=== PATIENT | male | born 1965 | race Caucasian/White ===

== ENCOUNTER 2018-12-12 16:12 | Inpatient (IN) | payer OTHER ==
[~2018-12-12] VITALS: Ht 188 cm; Wt 80.0 kg
--- NOTE | 2018-12-12 16:34 | NUR ---
ASSUMED CARE OF PATIENT IN ROOM 41. DR. DOW AT BEDSIDE. PATIENT AMBULATORY AND STEADY ON FEET. PATIENT ON HOSPICE.
--- NOTE | 2018-12-12 16:45 | NUR ---
CALLED [facility] AND SPOKE WITH ENRIQUE. NOTIFIED HER THAT PATIENT IS REQUESTING A WORK-UP HERE IN THE ER WITH THE POSSIBILITY OF HOSPITAL ADMISSION. TOLD ENRIQUE THAT WE WOULD KEEP HER UPDATED. ENRIQUE REQUESTED THAT WE CALL THEM IF PATIENT IS INDEED ADMITTED TO THE HOSPITAL, AT [phone]. REQUESTED A CURRENT MEDICATION LIST FROM JOHAN, WHO STATES SHE WILL FAX HERE TO THE ED.
[2018-12-12 16:47] LABS: ALANINE AMINOTRANSFERASE 24 U/L (12-78); ALBUMIN 1.9 g/dL (3.4-5.0); ANION GAP 5 mmol/L (5-15); CALCIUM 7.8 mg/dL (8.5-10.1); CHLORIDE 110 mmol/L (98-107); CREATININE 0.72 mg/dL (0.7-1.3)
--- NOTE | 2018-12-12 16:49 | NUR ---
PT IN CT COULD NOT CONDUCT EKG AT THIS TIME
[2018-12-12 16:50] LABS: ALKALINE PHOSPHATASE 204 U/L (45-117); BILIRUBIN,TOTAL 0.3 mg/dL (0.2-1.0); MEAN CORPUSCULAR HEMOGLOBIN 20.8 pg (27.5-34.5); MEAN CORPUSCULAR HGB CONC 30.5 g/dL (33.2-36.2); MEAN CORPUSCULAR VOLUME 68.2 fL (81-97); MEAN PLATELET VOLUME 9.9 fL (7.4-10.4); PLATELET COUNT 277 x10^3/uL (130-400); TOTAL PROTEIN 6.2 g/dL (6.4-8.2)
[2018-12-12 16:51] LABS: MD YES
[2018-12-12] MEDS ORDERED: NYST15PO9 TP (17:04)
[2018-12-12 17:05] LABS: INTERNATIONAL NORMALIZED RATIO 1.06 (0.93-1.1); PROTHROMBIN TIME 11.1 Seconds (9.6-11.5)
[2018-12-12] MEDS ORDERED: GABA-826 PO (17:06)
[2018-12-12] MEDS ORDERED: MORP20SO PO (17:09)
[2018-12-12] MEDS ORDERED: MORP60TA34 PO (17:09)
[2018-12-12] MEDS ORDERED: LIDO1ADH TD (17:12)
[2018-12-12 17:17] LABS: EOS#(MANUAL) 0.08 x10^3/uL (0.0-0.4); EOS% (MANUAL) 1 % (1-7); LYMPH#(MANUAL) 0.91 x10^3/uL (1-3.4); LYMPHS% (MANUAL) 12 % (22-44); MONOS#(MANUAL) 0.38 x10^3/uL (0.3-2.7); MONOS% (MANUAL) 5 % (2-9); REACTIVE LYMPHS # (MANUAL) 0.08 x10^3/uL (0-0); REACTIVE LYMPHS % (MANUAL) 1 % (0-0); SEG#(MANUAL) 6.16 x10^3/uL (1.8-6.8); SEGS% (MANUAL) 81 % (42-75)
[2018-12-12 17:22] LABS: HYPOCHROMIA 2+; MICROCYTOSIS 2+; POLYCHROMASIA 1+
[2018-12-12 17:25] LABS: <PLATELET ESTIMATE> ADEQUATE; GIANT PLATELETS 1+; SCHISTOCYTES 1+; TARGET CELLS 1+
[2018-12-12] MEDS ORDERED: SENN-31 PO (17:51)
[2018-12-12] MEDS ORDERED: ONDA4TAB7 PO (17:52)
[2018-12-12] MEDS ORDERED: OMEP-110 PO (17:53)
[2018-12-12] MEDS ORDERED: CIPR500T87 PO (17:53)
[2018-12-12] MEDS ORDERED: POTA20TA89 PO (17:54)
[2018-12-12] MEDS ORDERED: FURO-93 PO (17:55)
[2018-12-12] MEDS ORDERED: GUAI600T80 PO (17:57)
[2018-12-12] MEDS ORDERED: LIDO76.5 TP (17:57)
[2018-12-12] MEDS ORDERED: METH5TAB PO (17:58)
[2018-12-12] MEDS ORDERED: ASPIRIN 325 MG TABLET PO ONE (18:30)
--- NOTE | 2018-12-12 19:03 | NUR ---
PIV STARTED FOR HOSPITAL ADMISSION. DR. HACKETT AT BEDSIDE.
--- NOTE | 2018-12-12 19:24 | NUR ---
REPORT TO GIANA SINGER. FLOOR READY FOR PT. TRANSPORT.
--- NOTE | 2018-12-12 19:27 | NUR ---
SPOKE WITH GIANA ESTEBAN FROM [facility]. SHE STATES SHE WILL BE IN TO SEE PTRenato WOLFF. PT. UPDATED ON THIS.
[2018-12-12] MEDS ORDERED: LABETALOL 5 MG/ML SYRINGE IVPush PRN (19:30)
[2018-12-12] MEDS ORDERED: morphine SULFATE 10 MG/ML, 1ML IVPush PRN (19:30)
[2018-12-12] MEDS ORDERED: ENALAPRILAT 1.25 MG/ML, 2ML IVPush PRN (19:30)
[2018-12-12] MEDS ORDERED: ONDANSETRON 2MG/ML, 2ML IVPush PRN (19:30)
[2018-12-12] MEDS ORDERED: ENOXAPARIN 40 MG/0.4 ML SQ SCH (19:30)
[2018-12-12] MEDS ORDERED: ASPIRIN 325 MG TABLET ONE (19:30)
[2018-12-12] MEDS ORDERED: PANTOPRAZOLE 20MG TABLET PO ONE (19:30)
[2018-12-12] MEDS ORDERED: NICOTINE 7 MG/24 HR PATCH.TD24 TD SCH (19:30)
[2018-12-12 19:50] VITALS: BP 159/91
[2018-12-12 20:00] LABS: THYROID STIMULATING HORMONE 6.49 mIU/L (0.358-3.740)
[2018-12-12] MEDS ORDERED: MORPHINE SULFATE 10 MG PO PRN (20:00)
[2018-12-12] MEDS ORDERED: POLYETHYLENE GLYCOL 17 GM PACKET PO PRN (20:00)
[2018-12-12] MEDS ORDERED: LIDOCAINE HCL TP PRN (20:00)
[2018-12-12] MEDS ORDERED: OMNIPAQUE 350 MG/ML, 100ML BOTTLE ONE (21:00)
[2018-12-12] MEDS ORDERED: POTASSIUM CHLORIDE 40 MEQ in SODIUM CHLORIDE 0.9% 500 ML IV ONE (21:00)
[2018-12-12] MEDS ORDERED: MAGNESIUM SULFATE PMX 2GM/50ML 50 ML IV ONE (21:00)
[2018-12-12] MEDS ORDERED: METHADONE 5 MG TABLET PO SCH (21:00)
[2018-12-12] MEDS: POTASSIUM CHLORIDE 20 MEQ TAB.ER.PRT PO SCH (22:05)
[2018-12-12] MEDS: morphine SULFATE 60 MG TABLET.ER PO SCH (22:05)
[2018-12-12] MEDS: SENNA/DOCUSATE TABLET PO SCH (22:05)
[2018-12-12 22:55] LABS: CULTURE INDICATED? NO; MICROSCOPIC NOT IND
[2018-12-13] VITALS: BP 141/78
[2018-12-13] MEDS ORDERED: POTASSIUM PHOSPHATE 22 MEQ in SODIUM CHLORIDE 0.9% 500 ML IV ONE (02:00)
[2018-12-13 02:10] VITALS: BP 159/91
[2018-12-13 05:49] LABS: ALBUMIN 1.6 g/dL (3.4-5.0); ANION GAP 3 mmol/L (5-15); CALCIUM 7.5 mg/dL (8.5-10.1); CHLORIDE 111 mmol/L (98-107)
[2018-12-13 05:52] LABS: ALANINE AMINOTRANSFERASE 19 U/L (12-78); ALKALINE PHOSPHATASE 176 U/L (45-117); BILIRUBIN,TOTAL 0.3 mg/dL (0.2-1.0); CHOL/HDL RATIO 2.2; CHOLESTEROL, TOTAL 86 mg/dL (140-239); CREATININE 0.57 mg/dL (0.7-1.3); HDL CHOLESTEROL (DIRECT) 39 mg/dL (40-60); TOTAL PROTEIN 5.2 g/dL (6.4-8.2); TRIGLYCERIDES 66 mg/dL (50-200); VLDL CHOLESTEROL 13 mg/dL (0-25)
[2018-12-13 05:53] LABS: HDL CHOL % 45 % (26-37); LDL CHOLESTEROL,CALCULATED 34 mg/dL (54-169); LDL/HDL RATIO 0.9 (0.5-3.0)
[2018-12-13] MEDS ORDERED: ASPIRIN 325 MG TABLET PO SCH (06:00)
[2018-12-13 06:40] LABS: MD YES; MEAN CORPUSCULAR HEMOGLOBIN 21.3 pg (27.5-34.5); MEAN CORPUSCULAR HGB CONC 31.1 g/dL (33.2-36.2); MEAN CORPUSCULAR VOLUME 68.7 fL (81-97); MEAN PLATELET VOLUME 10.3 fL (7.4-10.4); PLATELET COUNT 215 x10^3/uL (130-400); RED BLOOD COUNT 3.94 x10^6/uL (4.38-5.82); RED CELL DISTRIBUTION WIDTH 24.8 % (9.4-14.8)
[2018-12-13 06:46] LABS: ANISOCYTOSIS 1+; EOS#(MANUAL) 0.24 x10^3/uL (0.0-0.4); EOS% (MANUAL) 4 % (1-7); LYMPH#(MANUAL) 1.08 x10^3/uL (1-3.4); LYMPHS% (MANUAL) 18 % (22-44); MONOS#(MANUAL) 0.12 x10^3/uL (0.3-2.7); MONOS% (MANUAL) 2 % (2-9); POLYCHROMASIA 1+; SEG#(MANUAL) 4.56 x10^3/uL (1.8-6.8); SEGS% (MANUAL) 76 % (42-75)
[2018-12-13 06:47] LABS: HYPOCHROMIA 1+; MICROCYTOSIS 2+; TARGET CELLS 1+
[2018-12-13 06:50] LABS: <PLATELET ESTIMATE> ADEQUATE; LARGE PLATELETS 1+
[2018-12-13 06:59] VITALS: BP 138/79
[2018-12-13] MEDS: POTASSIUM CHLORIDE 20 MEQ TAB.ER.PRT PO SCH (08:12)
[2018-12-13] MEDS: morphine SULFATE 60 MG TABLET.ER PO SCH ×2 (08:13→17:36)
[2018-12-13] MEDS: SENNA/DOCUSATE TABLET PO SCH (08:14)
[2018-12-13] MEDS: FUROSEMIDE 20 MG TABLET PO SCH ×2 (08:14→17:00)
[2018-12-13] MEDS ORDERED: LIDOCAINE HCL TD SCH (09:00)
[2018-12-13] MEDS ORDERED: MENTHOL TD SCH (09:00)
[2018-12-13 15:00] VITALS: BP 158/98
[2018-12-13 15:28] LABS: OCCULT BLOOD NEGATIVE (NEGATIVE)
== END 2018-12-13 18:04 | disposition left against medical advice (07) | DRG 291 ==
LOC: ED 19:14 → EDIP 19:15 → 4EST 19:43
PROVIDERS: ADMIT Family Medicine; ATTEND Family Medicine
DX: I11.0 Hypertensive heart disease with heart failure (principal); E43 Unspecified severe protein-calorie malnutrition; C18.9 Malignant neoplasm of colon, unspecified; C15.9 Malignant neoplasm of esophagus, unspecified; I50.33 Acute on chronic diastolic (congestive) heart failure; C14.0 Malignant neoplasm of pharynx, unspecified; Z51.5 Encounter for palliative care; K21.9 Gastro-esophageal reflux disease without esophagitis; J44.9 Chronic obstructive pulmonary disease, unspecified; M21.331 Wrist drop, right wrist; N50.89 Other specified disorders of the male genital organs; E87.6 Hypokalemia; D50.9 Iron deficiency anemia, unspecified; F17.210 Nicotine dependence, cigarettes, uncomplicated; G89.29 Other chronic pain; Z87.11 Personal history of peptic ulcer disease; Z85.820 Personal history of malignant melanoma of skin; Z85.01 Personal history of malignant neoplasm of esophagus; Z85.038 Personal history of other malignant neoplasm of large intestine; Z80.0 Family history of malignant neoplasm of digestive organs; Z15.09 Genetic susceptibility to other malignant neoplasm; Z68.22 Body mass index [BMI] 22.0-22.9, adult; Z53.21 Procedure and treatment not carried out due to patient leaving prior to being seen by health care provider
CPT/HCPCS: 36415; 70450; 70551; 71046; 71260; 74177; 80053; 80061; 81003; 82272; 83735; 83880; 84100; 84439; 84443; 85025; 85610; 85730; 93005; 93306; 99285; G0378; J1650; J3480; Q9967; J3475; J7040

== ENCOUNTER 2019-01-05 21:17 | Inpatient (IN) | payer OTHER ==
[~2019-01-05] VITALS: Ht 188 cm; Wt 72.6 kg
[~2019-01-05 21:17] MED LIST: CIPR500T87 PO; FURO-93 PO; GABA-826 PO; GUAI600T80 PO; LIDO1ADH TD; LIDO76.5 TP; METH5TAB PO; MORP20SO PO; MORP60TA34 PO; NYST15PO9 TP; OMEP-110 PO; ONDA4TAB7 PO; POTA20TA89 PO; SENN-31 PO
[2019-01-05] MEDS ORDERED: FENTANYL PATCH BC (21:25)
[2019-01-05] MEDS ORDERED: HYDROmorphone 2 MG/ML, 1ML ONE ×4 (21:30→23:16)
--- NOTE | 2019-01-05 21:34 | NUR ---
PT BIB [facility] FOR RIGHT SIDED ABD PAIN SECONDARY TO COLON CA. PT STATES 10/10 PAIN WITH ELEVATED HR AND BP. PER PT, HE WAS ON HOSPICE UNTIL PAIN WAS UNCONTROLLED TODAY. HOSPICE WAS THEN REVOKED AND PT WAS TRANSFERRED TO ED FOR PAIN CONTROL. CONNECTED TO MONITORS. RA SAT 90%, PT REFUSING O2. TACHY UP TO 105, AND HTN WITH SBP IN 150S. EDMD ASSESSMENT COMPLETE AND ORDERS RECEIVED. PAIN MEDICATION ADMINISTERED PER NOV. PT STATES PAIN IS 9/10 AFTER MEDICATIONS. AWAITING FURTHER ORDERS AT THIS TIME. NO NEEDS EXPRESSED. CALL LIGHT WITHIN REACH.
[2019-01-05] MEDS ORDERED: HYDROmorphone 1 MG/ML, 1ML VIAL ONE ×5 (21:49→22:55)
[2019-01-05] MEDS: HYDROmorphone 2 MG/ML, 1ML IVPush PRN ×8 (21:51→23:04)
[2019-01-05] MEDS ORDERED: HYDROmorphone 1 MG/ML, 1ML INJ IV ONE ×4 (22:00→23:30)
--- NOTE | 2019-01-05 22:00 | NUR ---
pain remains uncontrolled despite 4mg dilaudid. edmd aware. new orders received. pt continues to refuse o2 at this time.
--- NOTE | 2019-01-05 22:15 | NUR ---
RECEIVED BS REPORT FROM GIANA VICKERS TO ASSUME CARE OF PT. PT. MOVED TO ED 03.
--- NOTE | 2019-01-05 22:24 | NUR ---
PT. MEDICATED PER NOV. PT. NOW AGREEABLE TO WEARING O2. WITHOUT O2 PT. O2 SAT DOWN TO 74%; WITH COACHING ON BREATHING PT. O2 SAT INCREASED TO 93% WITH 4L VIA NC.
--- NOTE | 2019-01-05 22:29 | NUR ---
PT. CONTINUES TO REPORT 10/10 ABD PAIN AND APPEARS VERY UNCOMFORTABLE, GRIMACING/WRITING AROUD IN PAIN.
--- NOTE | 2019-01-05 22:53 | NUR ---
PT. CONTINUES TO C/O 10/10 PAIN AND APPEARS MORE UNCOMFORTABLE NOW THAN UPON INITIAL ASSESSMENT. PT. WRITING AROUND ON GURNEY AND IS GUARDING ABDOMEN. PER DR. MURRELL CONTINUE TO ADMIN 1MG DILUADID IVP Q5MIN UNTIL PAIN IS CONTROLLED.
--- NOTE | 2019-01-05 23:01 | NUR ---
PT. FLAILING AROUND ON GUCHRISTOPHER C/O 06/25 ABD PAIN DESPITE PAIN MED ADMINS; DR. MURRELL AWARE OF THIS AND STATES HE WILL BE IN TO DISCUSS POC WITH PT.
[2019-01-05] MEDS ORDERED: LORazepam 2 MG/ML, 1ML ONE (23:06)
--- NOTE | 2019-01-05 23:07 | NUR ---
PT. FLAILING AROUND ON GURNEY AND SHOUTING "OH SHIT, OH GOD, HELP ME, HELP ME. HELP ME." DR. MURRELL AT TO AL PT. VERBAL ORDER FOR 1MG ATIVAN IVP; ADMIN AT THIS TIME.
--- NOTE | 2019-01-05 23:22 | NUR ---
PT. HAS BEEN MEDICATED MULTIPLE TIMES PER MAR. DR. MURRELL REMAINS AT BS FOR EVAL OF PT. AT THIS MOMENT PT. RESTING WITHOUT FLAILING AROUND ON GURNEY; PT. WEARING O2 AND HAS STOPPED PULLING IT OFF HIS FACE AT THIS TIME. REMAINS AT BS FOR SUPPORT. PT. REPORTS PAIN IS 4/10 AT THIS TIME. ALL MONITORS ARE IN PLACE. CALL LIGHT IN REACH. ALL SAFETY MEASURES OBSERVED.
[2019-01-05] MEDS ORDERED: LORazepam 2 MG/ML, 1ML IVPush ONE (23:30)
[2019-01-05] MEDS ORDERED: HYDROmorphone 2 MG/ML, 1ML IV ONE ×2 (23:30)
[2019-01-05] MEDS ORDERED: HYDROmorphone 1 MG/ML, 1ML VIAL IVPush PRN (23:30)
[2019-01-05] MEDS ORDERED: HYDROmorphone 1 MG/ML, 1ML INJ IVPush PRN (23:30)
--- NOTE | 2019-01-05 23:52 | NUR ---
PT. [facility] PT. REPORTS PAIN IS CONTROLLED.
--- NOTE | 2019-01-06 00:18 | NUR ---
PT. BACK FROM X-RAY. PT. RESTING ON GURNEY IN SUPINE POSITION WIHT EYES CLOSED. SONOROUS, EVEN, NON-LABORED RESPIRATIONS. NADN. [facility] AT FOR SUPPORT. CALL LIGHT IN REACH. ALL MONITORS IN PLACE. ALL SAFETY MEASURES OBSERVED.
[2019-01-06] MEDS ORDERED: morphine SULFATE 60 MG TABLET.ER PO ONE (00:30)
--- NOTE | 2019-01-06 01:19 | NUR ---
CHART UP FOR RECHECK BY EMMANUELLE.
--- NOTE | 2019-01-06 01:44 | NUR ---
REPORT TO GIANA VITALE.
--- NOTE | 2019-01-06 02:20 | NUR ---
PT RESTING CALMLY IN BED WITH EYES CLOSED. AT BEDSIDE.
--- NOTE | 2019-01-06 03:11 | NUR ---
PT PLACED IN HOSPITAL GOWN. NO C/O PAIN AT THIS TIME. PT STATED HE FEELS OKAY, PT REPOSITIONED IN BED FOR COMFORT. CALL LIGHT WITHIN REACH. BILAT BEDRAILS UP. WILL CONTINUE TO MONITOR.
--- NOTE | 2019-01-06 04:23 | NUR ---
REPORT TO JAYNE RN FOR ROOM 441.
[2019-01-06] MEDS ORDERED: PROCHLORPERAZINE 25 MG SUPP PR PRN ×2 (05:00)
[2019-01-06] MEDS ORDERED: SCOPOLAMINE PATCH, 1.5MG PATCH.TD72 TD PRN (05:00)
[2019-01-06] MEDS ORDERED: MORPHINE SULFATE 4 MG/ML, 1ML IVPush PRN (05:00)
[2019-01-06] MEDS ORDERED: LORazepam INTENSOL 2 MG/ML SL PRN (05:00)
[2019-01-06] MEDS ORDERED: LORazepam 2 MG/ML, 1ML IVPush PRN (05:00)
[2019-01-06 05:03] VITALS: BP 98/72
== END 2019-01-06 09:00 | disposition expired | DRG 393 ==
LOC: ED 22:11 → EDIP 01-06 03:24 → 4NOR 01-06 04:40
PROVIDERS: ADMIT Internal Medicine; ATTEND Internal Medicine
DX: K55.029 Acute infarction of small intestine, extent unspecified (principal); E43 Unspecified severe protein-calorie malnutrition; I50.32 Chronic diastolic (congestive) heart failure; K56.609 Unspecified intestinal obstruction, unspecified as to partial versus complete obstruction; R18.8 Other ascites; D64.9 Anemia, unspecified; F17.210 Nicotine dependence, cigarettes, uncomplicated; I11.0 Hypertensive heart disease with heart failure; R09.02 Hypoxemia; I71.2 Thoracic aortic aneurysm, without rupture; J44.9 Chronic obstructive pulmonary disease, unspecified; Z51.5 Encounter for palliative care; Z66 Do not resuscitate; Z80.0 Family history of malignant neoplasm of digestive organs; Z90.49 Acquired absence of other specified parts of digestive tract; Z68.20 Body mass index [BMI] 20.0-20.9, adult; Z85.01 Personal history of malignant neoplasm of esophagus; Z85.038 Personal history of other malignant neoplasm of large intestine; Z98.84 Bariatric surgery status
CPT/HCPCS: 74022; 74176; G0378; J1170; J2060